=== PATIENT | female | born 1980 | race Caucasian/White ===

== ENCOUNTER 2022-02-19 05:22 | Observation (INO) | payer OTHER, SELFPAY ==
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
--- NOTE | 2022-02-19 05:40 | PC.NURSE ---
MEDS ON-CALL CONTACTED AT 5448 @ [phone], CALL FOR HELP CONTACTED AT 1113 AT [phone].
[2022-02-19 06:38] VITALS: BP 117/68; PULSE 97; RESP 18; TEMP 36.8; O2SAT 98
--- NOTE | 2022-02-19 06:46 | PC.NURSE ---
ERP notified of patients c/o.
[2022-02-19 11:33] LABS: Basophils Percent Auto 0.7 % (0.2-1.2); Eosinophils Percent Auto 0.5 % (0-4.4); Hematocrit 41.2 % (37.0-47.0); Hemoglobin 13.5 g/dL (12.0-15.0); Immature Granulocyte Absolute 0.01 K/mm3 (0.00-0.031); Immature Granulocyte Percent A 0.2 % (0-0.5); Lymphocytes Absolute Auto 2.93 K/mm3 (0.9-3.2); Lymphocytes Percent Auto 51.3 % (18.3-44.2); Mean Corpuscular HGB Conc 32.8 g/dl (32-36); Mean Corpuscular Hemoglobin 29.7 pg (26-34); Mean Corpuscular Volume 90.7 fl (80-100); Mean Platelet Volume 8.3 fl (7.4-10.4); Monocytes Absolute Auto 0.4 K/mm3 (0.1-0.6); Monocytes Percent Auto 7.4 % (2.6-8.5); Neutrophils Absolute Auto 2.3 K/mm3 (1.3-6.7); Neutrophils Percent Auto 39.9 % (45.5-73.1); Platelet Count Result 183 k/mm3 (150-375); Red Blood Count 4.54 M/mm3 (4.2-5.4); Red Cell Distribution Width 13.5 % (11.5-14.5); White Blood Count 5.7 K/mm3 (4.5-10.0)
[2022-02-19] MEDS: levonorgestreL 1.5 MG TABLET PO (11:34)
[2022-02-19] MEDS: AZITHROMYCIN 250 MG TABLET 1000 MG PO (11:35)
[2022-02-19] MEDS: metroNIDAZOLE 250 MG TABLET 2000 MG PO (11:35)
[2022-02-19] MEDS: RALTEGRAVIR 400 MG TABLET PO (11:37)
[2022-02-19] MEDS: EMTRICITABINE-TENOFOVIR 100 MG-150 MG TABLET 2 TAB PO (11:37)
[2022-02-19] MEDS: ONDANSETRON INJ 4 MG/2 ML VIAL IV PUSH (11:37)
[2022-02-19 11:44] LABS: INR 1.2; Partial Thromboplastin Time 26.9 SECONDS (22.3-36.8); Prothrombin Time 14.9 Seconds (11.1-14.7)
[2022-02-19 11:45] LABS: Alanine Aminotransferase 202 U/L (6-35); Albumin Level 4.2 g/dL (3.5-5.1); Alkaline Phosphatase 90 U/L (38-126); Anion Gap 7 mmol/L (8-16); Aspartate Amino Transferase 159 U/L (14-36); Bilirubin,Total 0.5 mg/dL (0.2-1.3); Blood Urea Nitrogen 11 mg/dL (7-17); Calcium 8.8 mg/dL (8.4-10.2); Carbon Dioxide 29 mmol/L (22-30); Chloride 99 mmol/L (98-107); Estimated CRCL calculation 63 ml/min; Estimated Glomerular Filt Rate > 60; Glucose 122 mg/dL (65-110); Sodium 135 mmol/L (137-145)
[2022-02-19 11:51] LABS: Pregnancy On Board Control Positive; Urine Pregnancy Test Negative
--- NOTE | 2022-02-19 11:52 | PC.NURSE ---
Acetaminophen and Toradol not given, pt refuses.
[2022-02-19] MEDS: cefTRIAXone 1 GM VIAL 0.5 GM IM (12:05)
[2022-02-19] MEDS: TETANUS,DIPHTHERIA,AC PERTUSSIS ADULT (0.5 ML) BOOSTRIX IM (12:05)
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
[2022-02-19 12:14] VITALS: BP 111/66; PULSE 83; RESP 18; O2SAT 98
[2022-02-19 12:25] LABS: HIV 1/2 Ab P24 Ag Result Negative (Negative)
[2022-02-19 12:44] LABS: Hepatitis B Core IgM Result Negative (Negative)
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
[2022-02-19 17:24] LABS: Influenza A QL RT-PCR Negative (Negative); Influenza B QL RT-PCR Negative (Negative); SARS-CoV-2 RNA PCR Negative
[2022-02-19 17:28] VITALS: BP 105/62; PULSE 68; RESP 18; O2SAT 98
[2022-02-19 20:00] VITALS: O2SAT 97
[2022-02-19 20:26] VITALS: BMI 25.5
[2022-02-19 20:27] VITALS: BP 124/57; PULSE 69; RESP 18; TEMP 36.5; O2SAT 97
--- NOTE | 2022-02-19 22:06 | PC.NURSE ---
unable to clarify medication pt sleeping at this time.
--- NOTE | 2022-02-20 04:35 | PC.NURSE ---
This patient, Cecilia Irene, was admitted to Medical Room 344-01. Patient/family oriented to hospital policies and general routines including ID bracelet, bed and alarms, visiting hours, pain management, procedures, bathroom and other care routines, personal items, smoking policy, room service/diet, and visiting hours. Information on how to activate the Rapid Response Team has been discussed. Patient/Family are encouraged to report perceived risks to care and to ask questions if they do not understand what they are told or what they should do. arrived prior to my shift 1850
--- NOTE | 2022-02-20 04:53 | PC.NURSE ---
pt declined to add personal contact and states doesn't use any pharmacies
--- NOTE | 2022-02-20 04:55 | PC.NURSE ---
states no home medications
[2022-02-20 05:09] VITALS: BP 122/74; PULSE 69; RESP 16; TEMP 36.6; O2SAT 99
[2022-02-20 06:20] LABS: Alanine Aminotransferase 174 U/L (6-35); Albumin Level 3.8 g/dL (3.5-5.1); Alkaline Phosphatase 96 U/L (38-126); Anion Gap 5 mmol/L (8-16); Aspartate Amino Transferase 120 U/L (14-36); Bilirubin,Total 0.6 mg/dL (0.2-1.3); Blood Urea Nitrogen 13 mg/dL (7-17); Calcium 8.5 mg/dL (8.4-10.2); Carbon Dioxide 27 mmol/L (22-30); Chloride 102 mmol/L (98-107); Estimated CRCL calculation 63 ml/min; Estimated Glomerular Filt Rate > 60; Glucose 90 mg/dL (65-110); Magnesium 1.9 mg/dL (1.6-2.3); Potassium 4.1 mmol/L (3.4-5.0); Sodium 134 mmol/L (137-145)
[2022-02-20 07:32] LABS: Hepatitis B Surface Antigen Negative (Negative); Thyroid Stimulating Hormone Reflex 0.486 uIU/mL (0.465-4.68)
[2022-02-20 07:38] LABS: HAV RESULT Negative (Negative); Hepatitis B Core IgM Result Negative (Negative)
[2022-02-20 07:55] LABS: Hepatitis C Virus Antibody Reactive (Negative)
[2022-02-20 08:00] VITALS: PULSE 69; RESP 16; O2SAT 99
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
[2022-02-21 11:28] LABS: Rapid Plasma Reagin Non-Reactive (NonReactive)
[2022-02-23 19:23] LABS: Hepatitis C RNA, Quant PCR 1400000 IU/mL
== END 2022-02-20 15:15 | disposition home or self-care (01) ==
LOC: ANHED 15:08 → ANH3MED 21:04 → ANH3MEDSUR 02-22 08:51
PROVIDERS: Physician Assistant; Admitting Provider Chiropractor; Emergency Provider Emergency Medicine; Visit Provider Student in an Organized Health Care Education/Training Program
DX: T74.21XA Adult sexual abuse, confirmed, initial encounter (principal); T71.9XXA Asphyxiation due to unspecified cause, initial encounter; Y07.50 Unspecified non-family member, perpetrator of maltreatment and neglect; R74.01 Elevation of levels of liver transaminase levels; B19.20 Unspecified viral hepatitis C without hepatic coma; Z20.822 Contact with and (suspected) exposure to COVID-19; F17.210 Nicotine dependence, cigarettes, uncomplicated; F10.90 Alcohol use, unspecified, uncomplicated; Z23 Encounter for immunization
CPT/HCPCS: 36415; 70496; 70498; 71046; 72125; 80053; 80074; 81025; 83735; 84443; 85025; 85610; 85730; 86592; 86703; 86705; 87491; 87522; 87591; 87636; 87661; 90471; 90715; 96372; 96374; 99285; A9270; G0378; G0432; J0131; J0696; J1885; J2405; Q9967